=== PATIENT | female | born 1940 | race Caucasian/White ===

== ENCOUNTER 2016-08-04 08:13 | Outpatient (CLI) | payer MEDICARE, BC | END 2016-08-04 08:14 | disposition home or self-care (01) | DX: I50.9 Heart failure, unspecified (principal); R60.9 Edema, unspecified ==

== ENCOUNTER 2021-11-04 15:12 | Outpatient (CLI) | payer MEDICARE, BC ==
--- NOTE | 2021-11-04 16:44 | DEXA Report ---
PROCEDURE: Dexa Spine and/or Hip INDICATIONS: POSTMENOPAUSAL TECHNIQUE: Dual energy x-ray absorptiometry (DXA) was performed on a [employer] System. Regions measur ed are the AP Spine, femoral neck, and if needed forearm. COMPARISON: None. FINDINGS: Lumbar Spine: Bone Mineral Density 1.169 g/cm/cm,T score -0.3, normal Mild Hip: Bone Mineral Density 0.939 g/cm/cm,T score -0.5, normal Left Femoral Neck: Bone Mineral Density 0.983 g/cm/cm, T score -0.4, normal (T score greater or equal to -1.0: NORMAL) (T score from -1.1 to -2.4: OSTEOPENIA) (T score less than or equal to -2.5 to: OSTEOPOROSIS) Impression: Normal bone mineral density Patients with diagnosis of osteoporosis or osteopenia should have regular bone mineral density assess ment. For those eligible for Medicare, routine testing is allowed once every 2 years. Testing frequ ency can be increased for patients who have rapidly progressing disease or for those who are receivin g medical therapy to restore bone mass. Reviewed by: Arelis Newby MD on 11/04/2021 4:43 PM PDT Approved by: Arelis Newby MD on 11/04/2021 4:43 PM PDT Station ID: [id number]
== END 2021-11-04 15:13 | disposition home or self-care (01) ==
LOC: DI 15:12
PROVIDERS: ATTEND Nurse Practitioner Family
DX: Z78.0 Asymptomatic menopausal state (principal)

== ENCOUNTER 2022-08-10 12:35 | Outpatient (CLI) | payer MEDICARE, BC ==
--- NOTE | 2022-08-10 14:40 | XRAY Report ---
PROCEDURE: Ribs w/PA Chest RT INDICATIONS: RIB PAIN TECHNIQUE: 4 views of the right ribs were acquired, along with a single view chest. COMPARISON: 12/14/2021 FINDINGS: Surgical changes and devices: None. Bones and chest wall: No fractures or dislocations. No suspicious bony lesions. Overlying soft tis sues appear unremarkable. Lungs and pleura: No pleural effusions or pneumothorax. Lungs appear clear. Mediastinum: Mediastinal contours appear normal. Heart size is normal. IMPRESSION: No evidence of displaced rib fracture. No evidence acute pulmonary process. Reviewed by: Ryan Chamorro MD on 08/10/2022 2:38 PM PST Approved by: Ryan Chamorro MD on 08/10/2022 2:38 PM PST Station ID: [id number]
== END 2022-08-10 12:36 | disposition home or self-care (01) ==
LOC: DI.S 12:35
PROVIDERS: ATTEND Nurse Practitioner Family
DX: R07.81 Pleurodynia (principal)